=== PATIENT | male | born 1980 | race Caucasian/White ===

== ENCOUNTER 2020-07-04 10:26 | Outpatient (CLI) | payer BC, SELFPAY ==
[2020-07-04 10:57] LABS: Basophils % 0.6 %; Eosinophils # 0.1 10^3/uL (0.0-0.8); Eosinophils % 1.1 %; Hematocrit 45.6 % (42.0-52.0); Lymphocytes # 1.7 10^3/uL (0.8-4.8); Mean Corpuscular HGB Conc 32.9 g/dL (30.0-36.0); Mean Corpuscular Hemoglobin 29.4 pg (28.0-34.0); Mean Corpuscular Volume 89.4 fL (80-94); Monocytes # 0.5 10^3/uL (0.2-0.9); Monocytes % 9.5 %; Neutrophils # 2.92 10^3/uL (1.8-7.7); Neutrophils % 55.6 %; Nucleated Red Blood Cells % 0 %; Platelet Count 241 10^3/cmm (130-400); Red Cell Distribution Width 11.6 % (12.1-15.1); White Blood Count 5.3 10^3/uL (4.0-10.0)
[2020-07-04 11:20] LABS: Carcinoembryonic Antigen 0.7 ng/mL (0.0-4.7); Thyroid Stimulating Hormone 1.03 uIU/mL (0.27-4.20)
[2020-07-04 11:31] LABS: Alanine Aminotransferase 21 U/L (0-41); Albumin Level 4.7 g/dL (3.5-5.2); Alkaline Phosphatase 68 IU/L (40-130); Anion Gap 14.7 (5-19); Aspartate Amino Transferase 21 U/L (0-40); Blood Urea Nitrogen 17 mg/dL (6-20); Calcium 9.5 mg/dL (8.5-10.5); Carbon Dioxide 26 mmol/L (22-29); Chloride 102 mmol/L (98-107); Globulin 2.7 g/dL (1.3-4.6); Glomerular Filtration Rate 94.4 mL/min (90-130); Glucose 85 mg/dL (65-115); Osmolality Calculated 287 mOsm/kg (285-295); Potassium 4.7 mmol/L (3.5-5.1); Sodium 138 mmol/L (136-145); Total Bilirubin 0.5 mg/dL (0.15-1.2); Total Protein 7.4 g/dL (6.6-8.7)
== END 2020-07-04 10:27 | disposition home or self-care (01) ==
LOC: LAB 10:30
PROVIDERS: PCP Nurse Practitioner Family; Visit Provider Surgery
DX: K59.00 Constipation, unspecified (principal); Z11.59 Encounter for screening for other viral diseases
CPT/HCPCS: 80053; 82378; 84443; 85025; 87635

== ENCOUNTER → 2020-07-18 17:04 | Outpatient (BNVA) | payer BC, SELFPAY | PROVIDERS: PCP Nurse Practitioner Family; Visit Provider Surgery | DX: Z11.59 Encounter for screening for other viral diseases (principal) | CPT/HCPCS: 87635 ==

== ENCOUNTER 2020-07-23 10:20 | Day surgery (SDC) | payer BC, SELFPAY ==
[2020-07-07 11:13] VITALS: BMI 25.7
[2020-07-21 10:51] VITALS: BMI 24.4
[2020-07-23 10:35] VITALS: BP 133/78; PULSE 74; RESP 18; TEMP 35.9; O2SAT 100
[2020-07-23] MEDS: sodium chloride 0.9% 1,000 ML 30 ML IV (10:58)
--- NOTE | 2020-07-23 11:01 | ANES.PREANE2 ---
Pre-Anesthetic Assessment Pre-Anesthetic Assessment: Height/Weight: Height 1.85 m Weight 83.915 kg Temp Pulse Resp BP Pulse Ox 96.7 F L 74 18 133/78 100 07/23/20 10:35 07/23/20 10:35 07/23/20 10:35 07/23/20 10:35 07/23/20 10:35 Preop Diagnosis: Change in bowel habits Proposed Procedure: Operation Date: 07/09/20 10:30 Proposed Procedures p Colonoscopy 32720 K59.00(Not Applicable) - Jonathan Pemberton MD Operation Date: 07/23/20 12:00 Proposed Procedures p Colonoscopy 17575 k59.00(Not Applicable) - Jonathan Pemberton MD Familial anesthetic complications: None Was Beta Eva taken within 24 hours: N/A Last intake: Intake Last Liquid Date 07/23/20 Last Liquid Time 07:30 Last Solid Date 07/21/20 Last Solid Time 20:30 Social: Social History: No tobacco Exam: Pre-Anes Outpt Exam: alert, oriented x 3, clear to auscultation bilaterally and regular rate & rhythm Airway: Cervical ROM: WNL MP: 1 Dentition: Full Anesthetic Plan: ASA status: 1 Anesthesia: MAC Risk of > 500 ml blood loss (7ml/kg in children): No Meds/Allergies Current Medications: Current Medications Generic Name Dose Route Start Last Admin Trade Name Freq PRN Reason Stop Dose Admin Sodium Chloride 1,000 mls @ 30 ml s/hr 07/23/20 10:45 07/23/20 10:58 Sodium Chloride 0.9% IV 07/24/20 10:44 30 mls/hr .Q24H AMY Administration PFSH Anesthesia PFSH: Family History Mother Clotting disorder Denies family history of Anesthesia complication Bleeding disorder Social History Smoking and tobacco status: never smoked Alcohol intake: never Household members: spouse Marital status: Current occupational status: employed History of recent travel: No Data Anesthesia Cardiac Studies: No Data to Display
--- NOTE | 2020-07-23 13:18 | W.PM.OPSUD ---
Surgery/Procedure H&P Update DATE OF PROCEDURE: July 23, 2020 DATE H&P PERFORMED: 07/02/20 H&P UPDATE INFORMATION: I have reviewed H&P completed within last 30 days, I have examined patient prior to procedure and No changes to prior documentation PREOP DIAGNOSIS: Change in bowel habits PRIMARY INDICATION FOR PROCEDURE: The same PLANNED PROCEDURE: Operation Date: 07/09/20 10:30 Proposed Procedures p Colonoscopy 31621 K59.00(Not Applicable) - Jonathan Pemberton MD Operation Date: 07/23/20 12:00 Proposed Procedures p Colonoscopy [id number] k59.00(Not Applicable) - Jonathan Pemberton MD
[2020-07-23 14:39] VITALS: BP 118/77; PULSE 78; RESP 18; TEMP 36.2; O2SAT 97
[2020-07-23 14:53] VITALS: BP 123/72; PULSE 58; RESP 18; O2SAT 57
== END 2020-07-23 15:15 | disposition home or self-care (01) ==
PROVIDERS: PCP Physician Assistant Medical; Visit Provider Surgery
PROC: 0DJD8ZZ Inspection of Lower Intestinal Tract, Via Natural or Artificial Opening Endoscopic (ICD-10-PCS; CPT 45378; principal; 2020-07-23 12:00)
DX: K59.00 Constipation, unspecified (principal); R63.4 Abnormal weight loss; Z68.24 Body mass index [BMI] 24.0-24.9, adult
CPT/HCPCS: 12345; 45378; J2704; J7030

== ENCOUNTER 2020-08-26 09:15 | Outpatient (CLI) | payer BC, SELFPAY ==
--- NOTE | 2020-08-26 09:30 | US_ITS ---
WS: [id number] Complete ABDOMINAL ULTRASOUND HISTORY: R10.9 - Unspecified abdominal pain COMPARISON: None available. Liver: 16.0 cm in length. Liver is normal size and echogenicity with no mass or intrahepatic dilatati on. Gallbladder: Normally distended with no gallstones, wall thickening or pericholecystic fluid. Gallbladder wall thickness: 0.3 cm. Pancreas: Poorly visualized pancreas due to body habitus. CBD: 0.3 cm. Right kidney: 10.3 cm x 5.3 cm x 4.9 cm. No mass, cortical thickening or hydronephrosis. Left kidney: 10.7 cm x 4.8 cm x 5.3 cm. No mass, cortical thickening or hydronephrosis. Spleen: Normal size and echogenicity. Abdominal aorta and IVC are within normal limits. No ascites. US/US abdomen complete* [id number] IMPRESSION: 1. Negative gallbladder. 2. Pancreas not visualized. 3. No abnormalities are identified.
== END 2020-08-26 09:16 | disposition home or self-care (01) ==
LOC: RAD 09:18
PROVIDERS: PCP Physician Assistant Medical; Visit Provider Surgery
DX: R10.9 Unspecified abdominal pain (principal)
CPT/HCPCS: 76700